=== PATIENT | female | born 1955 | race Hispanic/Latino ===

== ENCOUNTER → 2017-10-09 | Outpatient (CLI) | payer BC ==
[~2017-10-09] MED LIST: ALBU18HF7 IH; BRINOS OU; BUPR-47 PO; DESV100T PO; MOME13HF IH
== END | disposition home or self-care (01) ==
LOC: SHCH 13:13
PROVIDERS: ATTEND Internal Medicine Cardiovascular Disease
DX: Z09 Encounter for follow-up examination after completed treatment for conditions other than malignant neoplasm (principal)
CPT/HCPCS: 93971

== ENCOUNTER → 2019-03-22 | Outpatient (CLI) | payer BC, OTHER | END | disposition home or self-care (01) | LOC: SHCH 13:41 | PROVIDERS: ATTEND Internal Medicine Cardiovascular Disease | DX: I87.2 Venous insufficiency (chronic) (peripheral) (principal) | CPT/HCPCS: 93970 ==

== ENCOUNTER 2021-04-01 07:21 | Day surgery (SDC) | payer MEDICARE ==
[2021-03-29 12:54] LABS: HEMATOCRIT 46.5 % (36-48); LYMPHOCYTES % (AUTO) 24.6 % (21.0-51.0); MEAN CORPUSCULAR HEMOGLOBIN 28.4 pg (27.0-33.0); MEAN CORPUSCULAR HGB CONC 31.6 g/dL (32.0-36.0); MEAN CORPUSCULAR VOLUME 89.8 fL (79-99); MONOCYTES % (AUTO) 7.2 % (3.0-13.0); NEUTROPHILS % (AUTO) 63.9 % (40.0-77.0); PLATELET COUNT (AUTO) 267 K/uL (130-400); RED BLOOD CELL COUNT(AUTO) 5.18 MIL/uL (4.00-5.50); WHITE BLOOD COUNT (AUTO) 7.1 K/uL (4.8-10.8)
[2021-03-29 13:00] LABS: APPEARANCE,URINE Clear (CLEAR); BILIRUBIN,URINE Negative (NEGATIVE); COLOR,URINE Yellow (YELLOW); GLUCOSE, URINE (UA) Negative (NEGATIVE); KETONES,URINE Negative (NEGATIVE); LEUKOCYTE ESTERASE ,URINE Negative (NEGATIVE); NITRATE,URINE Negative (NEGATIVE); OCCULT BLOOD,URINE Negative (NEGATIVE); PROTEIN,URINE Negative (NEGATIVE); UROBILINOGEN,URINE 0.2 mg/dL (0.2-1.0)
[2021-03-29 13:04] LABS: CREATININE 0.9 mg/dL (0.5-1.5); POTASSIUM 4.5 mmol/L (3.5-5.1)
[2021-03-29 13:07] LABS: INR 1.03 (0.85-1.15); PROTHROMBIN TIME 11.2 SEC (9.6-11.6)
[2021-03-29 13:08] LABS: PARTIAL THROMBOPLASTIN TIME 26.6 SEC (26.3-35.5)
[2021-03-31 11:59] VITALS: BP 149/77
[2021-04-01] VITALS (15 sets, daily range): BP systolic 115–143; BP diastolic 51–82
[~2021-04-01] VITALS: Ht 170.2 cm; Wt 74.4 kg
[~2021-04-01 07:21] MED LIST changes: +ASCO100031 PO; +BUDE10.2 IH; -BUPR-47 PO; +CALC-1125 PO; +CLON0.5T4 PO; +CYCL30DR OU; -DESV100T PO; +DULO60CA64 PO; +IPRA3AMP24 IH; +LEVO500T90 PO; -MOME13HF IH; +MONT-39 PO; +MULT-1367 PO; +TAFL1DRO OU; +THEO400T3 PO; +TRAZ-185 PO
[2021-04-01] MEDS ORDERED: 0.9%NACL 1000ML 0 ML IV ONE (07:48)
[2021-04-01] MEDS ORDERED: IOHEXOL-350 50ML VIAL IV ONE (07:57)
[2021-04-01] MEDS ORDERED: LACTATED RINGERS 1000ML 1,000 ML IV ONE (08:10)
[2021-04-01] MEDS: GENTAMICIN 80 MG/NS 100 ML PB 100 ML IV ONE ×2 (08:31→08:43)
[2021-04-01] MEDS: CEFTRIAXONE 1G VIAL IVP ONE ×2 (08:32→10:30)
[2021-04-01] MEDS ORDERED: GENTAMICIN 80 MG/NS 100 ML PB 100 ML IV SCH (09:00)
[2021-04-01] MEDS ORDERED: ONDANSETRON 4MG INJ ONE (09:38)
[2021-04-01] MEDS ORDERED: MIDAZOLAM HCL 1 MG/ML 2ML VIAL ONE (09:38)
[2021-04-01] MEDS ORDERED: DEXAMETHASONE SOD PHOSPHATE 10MG/ML 1ML VIAL ONE (09:38)
[2021-04-01] MEDS ORDERED: SUCCINYLCHOLINE 200MG/10ML SYR ONE (09:38)
[2021-04-01] MEDS ORDERED: LIDOCAINE PF 100MG/5ML (2%) SYRINGE 5ML ONE (09:38)
[2021-04-01] MEDS ORDERED: GLYCOPYRROLATE 1 MG/5 ML SYRINGE ONE (09:39)
[2021-04-01] MEDS ORDERED: NEOSTIGMINE 5MG/5ML SYR IV ONE (09:39)
[2021-04-01] MEDS ORDERED: PROPOFOL 10 MG/ML 20ML VIAL IV ONE (09:40)
[2021-04-01] MEDS ORDERED: ROCURONIUM 10MG/1ML SYR 10 MG/ML ML ONE (09:40)
[2021-04-01] MEDS ORDERED: FENTANYL CITRATE PF 50 MCG/1 ML 2ML VIAL ONE (09:41)
== END 2021-04-01 14:00 | disposition home or self-care (01) ==
LOC: DAH 07:21
PROVIDERS: ATTEND Urology
DX: N13.30 Unspecified hydronephrosis (principal); Z20.822 Contact with and (suspected) exposure to COVID-19; C66.1 Malignant neoplasm of right ureter; J45.909 Unspecified asthma, uncomplicated; Z88.8 Allergy status to other drugs, medicaments and biological substances; Z88.0 Allergy status to penicillin; Z90.49 Acquired absence of other specified parts of digestive tract; Z90.710 Acquired absence of both cervix and uterus; Z98.49 Cataract extraction status, unspecified eye; Z98.890 Other specified postprocedural states; Z79.01 Long term (current) use of anticoagulants; Z79.899 Other long term (current) drug therapy
CPT/HCPCS: 36415; 52332; 52354; 71045; 74420; 80048; 81003; 85025; 85610; 85730; 87088; 87635; 88305; 93005; A4215; A4221; A4222; A4223; A4358; A4600; A4663; A6260; C1758; C1769; C2617; C9803; J0330; J0696; J1100; J1580 ×2; J2001; J2250; J2405; J2704; J2710; J3010; J3490; J7120 ×2; Q9967; J7030

== ENCOUNTER → 2022-05-17 | Outpatient (CLI) | payer MEDICARE ==
[~2022-05-17] MED LIST changes: +LEVO-70 PO; -LEVO500T90 PO
== END | disposition home or self-care (01) ==
LOC: RAH 09:28
PROVIDERS: ATTEND Internal Medicine
DX: M47.26 Other spondylosis with radiculopathy, lumbar region (principal); M47.817 Spondylosis without myelopathy or radiculopathy, lumbosacral region
CPT/HCPCS: 72148

== ENCOUNTER → 2022-07-28 | Outpatient (CLI) | payer MEDICARE ==
[2022-07-28 16:17] LABS: BASOPHILS % (AUTO) 1.2 % (0.0-5.0); EOSINOPHILS % (AUTO) 4.6 % (0.0-8.0); HEMATOCRIT 43.8 % (36-48); LYMPHOCYTES % (AUTO) 28.5 % (21.0-51.0); MEAN CORPUSCULAR HEMOGLOBIN 28.5 pg (27.0-33.0); MEAN CORPUSCULAR HGB CONC 31.5 g/dL (32.0-36.0); MEAN CORPUSCULAR VOLUME 90.5 fL (79-99); MONOCYTES % (AUTO) 8.2 % (3.0-13.0); NEUTROPHILS % (AUTO) 57.3 % (40.0-77.0); PLATELET COUNT (AUTO) 215 K/uL (130-400); RED BLOOD CELL COUNT(AUTO) 4.84 MIL/uL (4.00-5.50); RED CELL DISTRIBUTION WIDTH 13.1 % (11.0-15.5); WHITE BLOOD COUNT (AUTO) 5.9 K/uL (4.8-10.8)
[2022-07-28 16:28] LABS: INR 0.97 (0.85-1.15); PROTHROMBIN TIME 10.6 SEC (9.6-11.6)
[2022-07-28 16:29] LABS: PARTIAL THROMBOPLASTIN TIME 26.8 SEC (26.3-35.5)
[2022-07-28 16:31] LABS: CREATININE 1.1 mg/dL (0.5-1.5); POTASSIUM 4.3 mmol/L (3.5-5.1)
== END | disposition home or self-care (01) ==
LOC: LAB 13:28
PROVIDERS: ATTEND Internal Medicine Cardiovascular Disease
DX: I87.2 Venous insufficiency (chronic) (peripheral) (principal); I87.1 Compression of vein; I10 Essential (primary) hypertension; G62.9 Polyneuropathy, unspecified; M79.89 Other specified soft tissue disorders; Z79.899 Other long term (current) drug therapy
CPT/HCPCS: 36415; 80048; 85025; 85610; 85730

== ENCOUNTER → 2023-06-26 | Outpatient (CLI) | payer MEDICARE ==
[~2023-06-26] MED LIST changes: +REGADENOSON 0.4 MG/5 ML PF SYG IVP ONE
== END | disposition home or self-care (01) ==
LOC: SHCH 08:12
PROVIDERS: ATTEND Internal Medicine Cardiovascular Disease
DX: I20.9 Angina pectoris, unspecified (principal); R06.09 Other forms of dyspnea
CPT/HCPCS: 78452; 96374; 93017; J2785; A9500 ×2

== ENCOUNTER → 2023-07-11 | Outpatient (CLI) | payer MEDICARE ==
[~2023-07-11] MED LIST changes: -REGADENOSON 0.4 MG/5 ML PF SYG IVP ONE
== END | disposition home or self-care (01) ==
LOC: SHCH 12:05
PROVIDERS: ATTEND Internal Medicine Cardiovascular Disease
DX: I20.9 Angina pectoris, unspecified (principal); I51.89 Other ill-defined heart diseases; R06.09 Other forms of dyspnea; I87.2 Venous insufficiency (chronic) (peripheral); I87.1 Compression of vein
CPT/HCPCS: 93306; 93970

== ENCOUNTER → 2024-05-10 | Outpatient (CLI) | payer MEDICARE ==
--- NOTE | 2024-05-10 13:58 | HMCIMG ---
KNEE 3VWS LT HISTORY: Left knee pain COMPARISON: None TECHNIQUE: 3 images of left knee were obtained. FINDINGS: There is no acute displaced fracture or dislocation. Medial femorotibial joint space narrowing is seen. Degenerative changes are seen. IMPRESSION: 1. Findings as described above.
== END | disposition home or self-care (01) ==
LOC: RAH 11:25
PROVIDERS: ATTEND Physician Assistant
DX: M17.12 Unilateral primary osteoarthritis, left knee (principal); M25.562 Pain in left knee
CPT/HCPCS: 73562

== ENCOUNTER → 2024-09-02 | Outpatient (CLI) | payer MEDICARE | END | disposition home or self-care (01) | LOC: SHCH 10:27 | PROVIDERS: ATTEND Internal Medicine Cardiovascular Disease | DX: I82.431 Acute embolism and thrombosis of right popliteal vein (principal); I70.203 Unspecified atherosclerosis of native arteries of extremities, bilateral legs; I87.1 Compression of vein; I87.2 Venous insufficiency (chronic) (peripheral) | CPT/HCPCS: 93925; 93970 ==